=== PATIENT | male | born 1950 | race Caucasian/White ===

== ENCOUNTER 2018-06-25 09:23 | Emergency (ER) | payer MEDICAID, OTHER ==
[2018-06-25 09:36] VITALS: BP 138/103
--- NOTE | 2018-06-25 10:10 | EDPHY ---
General Time Seen by Provider: 06/25/18 10:03 Narrative: CHIEF COMPLAINT: Hip pain HISTORY OF PRESENT ILLNESS: Patient presents by private vehicle with complaints of left hip pain. pain has been present since September. He states that he has been seen several times by primary care physician at the [facility] and diagnosed with degenerative hip. He has a pending MRI but does not have an appointment. He has been taking naproxen and Tylenol with no improvement. He has no new trauma or injury. No numbness, tingling or weakness. No redness or warmth. No fever. He is here asking for pain control to get him to his MRI. No other associated complaints or modifying factors. REVIEW OF SYSTEMS: 10 systems were reviewed and negative with the exception of the elements mentioned in the history of present illness. PCP: [facility] SPECIALISTS: Pending orthopedic follow-up PAST MEDICAL HISTORY: Osteoarthritis, degenerative disease, asthma, bladder cancer, diabetes mellitus PAST SURGICAL HISTORY: Cystectomy. No recent surgeries SOCIAL HISTORY: Lives independently. FAMILY HISTORY: Noncontributory EXAMINATION: General Appearance: Alert, no distress. Ambulatory with cane. Head: normocephalic, atraumatic Cardiovascular: Regular rate. Symmetric DP and PT pulses 2+. Good signs of perfusion of both lower extremities. Back: non-tender, no bony abnormalities Neurological: A&O, nonfocal, antalgic but steady gait. Strength is symmetric in both knees at 5/5. Patellar reflexes symmetric Skin: Warm and dry, no rash. No cellulitis. No petechiae. No purpura Extremities: Tenderness of the left greater trochanter and left inguinal fold. There is no bony tenderness of the pelvis, knees, shins or ankles. Range of motion symmetric to both lower extremities passive and active. Psychiatric: Mood and affect normal DIFFERENTIAL DIAGNOSES: Including but not limited to osteoarthritis, labrum tear, dislocation, subluxation, septic joint, toxic synovitis MDM: 10:10 a.m. Left hip pain that is chronic in nature with diagnosis of osteoarthritis/ degenerative disease. There is no evidence of toxic synovitis or septic joint. There is no cellulitis. There is full range of motion of the hip with no acute changes. His only request is pain control. He reports a a normal x-ray and CT scan over the past 2 months. He has not been on any narcotics for this and I have verified this. I have ordered short course of pain medication for him and he will continue his workup with [facility] with a pending MR Santy. We discussed ED precautions for redness, warmth, fever or worsening pain. He is ambulatory and comfortable this plan. Discharged home stable condition. SUPERVISION: This patient was independently evaluated without direct involvement of or examination by the attending physician. CONSULTATION: None - History Smoking Status: Former smoker - Objective Vital Signs: Initial Vital Signs Temperature (C) 98.6 F 06/25/18 09:28 Heart Rate 78 06/25/18 09:28 Respiratory Rate 16 06/25/18 09:28 Blood Pressure 138/103 H 06/25/18 09:28 O2 Sat (%) 94 06/25/18 09:28 O2 Delivery Mode Room Air Allergies/Adverse Reactions: No Known Allergies Allergy (Verified 06/25/18 09:27) Home Medications: Medication Instructions Recorded Albuterol 06/25/18 Metformin 1000 mg 06/25/18 oxyCODONE HCL/ACETAMINOPHEN 1 each PO Q4-6PRN PRN #13 tablet 06/25/18 [Percocet 5-325 mg Tablet] Departure - Departure Disposition: Home, Routine, Self-Care Clinical Impression: Left hip pain Osteoarthritis of left hip Qualifiers: Osteoarthritis type: primary Qualified Code(s): M16.12 - Unilateral primary osteoarthritis, left hip Condition: Good Instructions: Arthralgia (ED), Hip Pain (ED) Additional Instructions: 1. Continue your previous naproxen medication 2. Pain medication as prescribed as needed. Do not combine with alcohol, marijuana or acetaminophen 3. Contact the [facility] for outpatient follow-up for MRI of the left hip 4. I have also provided the on-call orthopedist for outpatient follow-up if needed 5. Return here for any redness over the left hip, fever, worsening pain or inability to ambulate Referrals: Dedrick Sequeira MD [Medical Doctor] - As per Instructions Prescriptions: oxyCODONE HCL/ACETAMINOPHEN [Percocet 5-325 mg Tablet] 1 each PO Q4-6PRN PRN # 13 tablet PRN Reason: Pain, Breakthrough
== END 2018-06-25 10:20 | disposition home or self-care (01) ==
DX: M16.12 Unilateral primary osteoarthritis, left hip (principal); E11.9 Type 2 diabetes mellitus without complications; Z79.4 Long term (current) use of insulin; Z85.51 Personal history of malignant neoplasm of bladder; Z87.891 Personal history of nicotine dependence

== ENCOUNTER 2018-10-03 12:25 | Emergency (ER) | payer OTHER ==
--- NOTE | 2018-10-03 13:36 | EDPHY ---
H & P Time Seen by Provider: 10/03/18 12:53 HPI/ROS: Chief complaint. Left hip pain HPI. Patient is a 68-year-old male with chronic left hip pain. He has severe DJD. He has been seen [facility] for [facility] and has a hip replacement scheduled in about 2 weeks at the [facility]. He has not had a recent fall or injury but the pain has increased markedly since yesterday. He is using the Tylenol and Naprosyn with inadequate relief in prior had been sufficient for pain control. He did go grocery shopping yesterday and did some yd work around the house and now increased pain. Pain is in the hip and radiates to the left knee. ROS 10 systems were reviewed and negative with the exception of the elements mentioned in the history of present illness Past Medical/Surgical History: Diabetes, bladder cancer, asthma, degenerative joint disease Social History: Single, nonsmoker, no alcohol Smoking Status: Former smoker Physical Exam: General Appearance: Alert pleasant well-developed male moderate distress vital signs are stable Eyes: Pupils equal and round no pallor or injection. ENT, Mouth: Mucous membranes are moist. Respiratory: There are no retractions, lungs are clear to auscultation. Cardiovascular: Regular rate and rhythm. Gastrointestinal: Abdomen is soft and nontender, no masses, bowel sounds normal. Neurological: Awake and alert, sensory and motor exams grossly normal. Skin: Warm and dry, no rashes. Musculoskeletal: Neck is supple nontender. Extremities pain in the left hip to palpation and somewhat in the groin. Painful range of motion in terms of flexion extension and internal and external rotation. No findings about the knee accepted does somewhat hurt to palpation. No obvious swelling or dislocation. Distal motor vascular sensitivity intact Psychiatric: Patient is oriented X 3, there is no agitation. Constitutional: Initial Vital Signs Temperature (C) 36.4 C 10/03/18 12:29 Heart Rate 67 10/03/18 12:29 Respiratory Rate 18 10/03/18 12:29 Blood Pressure 129/72 H 10/03/18 12:29 O2 Sat (%) 97 10/03/18 12:29 O2 Delivery Mode Room Air Allergies/Adverse Reactions: No Known Allergies Allergy (Verified 10/03/18 12:27) Home Medications: Medication Instructions Recorded Albuterol 06/25/18 Metformin 1000 mg 06/25/18 Hydrocodone/APAP 5/325 [[place] 1 each PO Q4-6PRN PRN #14 tab 10/03/18 5/325 (*)] Naproxen 10/03/18 Medical Decision Making - Diagnostics Imaging Results: Imaging Impressions Femur X-Ray 10/03/18 13:34 Impression: 1. Subtle radiolucent features within the weightbearing aspect of the left femoral head, not as conspicuous on current study as previous AP pelvis radiograph. As discussed previously, left hip MRI examination may be of benefit as clinically appropriate. Pelvis X-Ray 10/03/18 13:36 Impression: 1. Subtle radiolucency involving the weightbearing aspect left femoral head, differential considerations as above. MRI examination of the left hip may be of benefit in further evaluation as clinically appropriate. X-ray left hip and femur shows severe DJD left femoral head and acetabulum ED Course/Re-evaluation: Re-evaluation at 3:10 p.m. Patient is stable. He and I discussed imaging study results, treatment plan including criteria for return importance of follow-up further evaluation. He expresses understanding and agreement Differential Diagnosis: Patient is awaiting hip replacement for DJD left hip. Increased activity yesterday with increased pain not fully resolved with a C2 min and naproxen. No evidence of fracture dislocation Departure - Departure Disposition: Home, Routine, Self-Care Clinical Impression: Left hip pain Condition: Good Instructions: Hip Pain (ED) Additional Instructions: Continue Naproxen as prescribed. Hydrocodone 1 pill every 4-6 hours to help with pain May use Tylenol and naproxen or hydrocodone and naproxen. If using hydrocodone do not take extra Tylenol Return for worsening symptoms Follow-up at [facility] for continuing symptoms Referrals: NONE *PRIMARY CARE P,. [Primary Care Provider] - As per Instructions Prescriptions: Hydrocodone/APAP 5/325 [[place] 5/325 (*)] 1 each PO Q4-6PRN PRN #14 tab PRN Reason: Pain, Moderate
[2018-10-03 15:27] VITALS: BP 128/74
== END 2018-10-03 15:27 | disposition home or self-care (01) ==
DX: M25.552 Pain in left hip (principal); E11.9 Type 2 diabetes mellitus without complications; Z79.4 Long term (current) use of insulin; Z85.51 Personal history of malignant neoplasm of bladder

== ENCOUNTER 2018-10-10 11:56 | Emergency (ER) | payer OTHER ==
--- NOTE | 2018-10-10 14:02 | EDPHY ---
H & P Time Seen by Provider: 10/10/18 12:59 HPI/ROS: HPI Chronic left hip pain, needs pain medication. A 68-year-old male by private vehicle. This patient has a history of chronic left hip pain secondary to degenerative arthritis. [facility] He states that he is currently trying to get scheduled for a left hip replacement through his primary care physician. He was seen in our emergency department on October 03 with the same complaint is today. He was prescribed Vicodin, 14. At that time. He tells me that he does have a appointment to see his primary care physician in early October. He states that he has run out of his pain medication and is asking for a refill of his Vicodin prescription. He has no other complaints. ROS: Constitutional: No fever, no chills. No weakness. Musculoskeletal: No back pain. No neck pain. As above. Skin: No rashes. Neurological: No focal weakness or altered sensation. Past medical history: Diabetes, bladder cancer, asthma, degenerative joint disease, chronic left hip pain. Social history: Better in. Here by himself. Nonsmoker. No alcohol. Physical Exam: General Appearance: Alert, no distress. This patient is responding to questions appropriately and in full sentences. This patient appears well- hydrated and well-nourished. Eyes: Pupils equal and round no pallor or injection. No lid edema, erythema or injection. Neurological: Motor sensory function is grossly intact. Cranial nerves are normal. Walks with a cane secondary to his chronic left hip pain. Skin: Warm and dry, no rashes. Extremities are symmetrical. All joints range without pain or impingement except for the left hip. Psychiatric: No agitation. No depression. Database: EKG: Imaging: Procedures: Emergency department course: Triage vital signs reviewed and are unremarkable. His emergency department notes and workup were reviewed from his previous visit. This patient presents to the emergency department for refill of his Vicodin pain medication prescription. I feel that he does have real pain. I explained to him that I would refill his prescription but that he needed to follow up with his primary care physician for ongoing pain management and future pain medication prescription refills. He understands this. He feels comfortable going home. Follow-up and return to emergency department precautions discussed with him. All of his questions were answered. He was discharged from the emergency department in good condition. Differential Diagnosis: The differential diagnosis on this patient includes but is not limited to chronic left hip pain. Acute fracture, subluxation, dislocation, other acute traumatic injury unlikely. This represents a partial list of diagnoses considered. These considerations are based on history, physical exam, past history, reassessment and diagnostic testing. Smoking Status: Former smoker Constitutional: Initial Vital Signs Temperature (C) 36.6 C 10/10/18 12:03 Heart Rate 70 10/10/18 12:03 Respiratory Rate 18 10/10/18 12:03 Blood Pressure 134/75 H 10/10/18 12:03 O2 Sat (%) 94 10/10/18 12:03 O2 Delivery Mode Room Air Allergies/Adverse Reactions: No Known Allergies Allergy (Verified 10/03/18 12:27) Home Medications: Medication Instructions Recorded Albuterol 06/25/18 Metformin 1000 mg 06/25/18 Hydrocodone/APAP 5/325 [[place] 1 each PO Q4-6PRN PRN #14 tab 10/03/18 5/325 (*)] Naproxen 10/03/18 Hydrocodone/APAP 5/325 [[place] 1 - 2 tab PO Q4-6PRN PRN #14 tab 10/10/18 5/325 (*)] Departure - Departure Disposition: Home, Routine, Self-Care Clinical Impression: Chronic left hip pain Condition: Good Instructions: Arthritis (ED) Additional Instructions: Read and follow provided instructions. Follow-up with your primary care physician as discussed for ongoing management of your chronic left hip pain. Narcotic pain medication: 1-2 every 4-6 hours as needed for pain. Do not drive while on this medication. Return to the emergency department for worsening symptoms or other serious concerns. Referrals: NONE *PRIMARY CARE P,. [Primary Care Provider] - As per Instructions Prescriptions: Hydrocodone/APAP 5/325 [[place] 5/325 (*)] 1 - 2 tab PO Q4-6PRN PRN #14 tab PRN Reason: Pain, Moderate
[2018-10-10 14:08] VITALS: BP 136/81
== END 2018-10-10 14:07 | disposition home or self-care (01) ==
DX: M25.552 Pain in left hip (principal); G89.29 Other chronic pain; E11.9 Type 2 diabetes mellitus without complications; Z79.4 Long term (current) use of insulin